=== PATIENT | female | born 1985 | race Caucasian/White ===

== ENCOUNTER 2018-03-23 19:31 | Emergency (ER) | payer OTHER ==
[2018-03-23] MEDS ORDERED: NA CHLORIDE 0.9% 1,000 ML ONE ×2 (20:19→22:00)
[2018-03-23 20:40] LABS: Urine Blood NEGATIVE (NEG); Urine Glucose NEGATIVE (NEG); Urine Protein NEGATIVE (NEG)
[2018-03-23 20:49] LABS: Absolute Lymphocytes (CBC) 0.2 K/uL (0.7-4.9); Absolute Monocytes 0.4 K/uL (0.1-1.3); Basophils % 0.2 % (0-1.3); Eosinophils % 0.9 % (0-4.4); Hematocrit 40.8 % (36.0-45.0); Lymphocytes % 2.3 % (15.3-44.8); MCH 27.8 pg (27.0-35.0); MCV 83.1 fL (80-100); Monocytes % 3.7 % (3.3-12.3); RBC Red Blood Cell Count 4.91 M/uL (3.86-4.86)
[2018-03-23 20:53] LABS: Potassium 3.6 mEq/L (3.6-5.0)
[2018-03-23 20:59] LABS: Albumin 4.5 g/dL (3.2-5.5); Bilirubin Direct 0.1 mg/dL (0-0.2); Bilirubin Total 1.1 mg/dL (0.3-1.2); Protein, Total 7.3 g/dL (6.0-8.3)
[2018-03-23 21:12] LABS: Urine RBC <5 /HPF (NONE SEEN)
[2018-03-23 21:13] LABS: Urine Bacteria <20 /HPF (<20); Urine Culture Reflex Order NOT NEEDED
[2018-03-23 21:14] LABS: Blood Morphology Comment NOT SEEN (NOT SEEN); Platelet Estimate ADEQ; Urine White Blood Cell Casts OK
--- NOTE | 2018-03-23 21:51 | RAD REPORT ---
EXAM DESCRIPTION: CT - Abdomen Pelvis W Contrast - 03/23/2018 9:36 pm CLINICAL HISTORY: Abdominal pain with nausea and vomiting COMPARISON: none. TECHNIQUE: Computed axial tomography of the abdomen pelvis was obtained. 100 cc Isovue-300 was admin istered intravenously. Oral contrast was not requested which limits evaluation of bowel. All CT scans are performed using dose optimization technique as appropriate and may include automated exposure control or mA/KV adjustment according to patient size. FINDINGS: The liver, spleen, pancreas, and adrenals appear unremarkable. A a\ 23 millimeter structure is present within the right renal fossa which is partially cystic. This probably represents right renal tissue which is congenitally markedly atrophic. The left kidney appears unremarkable. There is no evidence of diverticulitis. An adnexal mass is not seen. The appendix is not clearly visualized. A small umbilical hernia is present IMPRESSION: Congenitally markedly atrophic right kidney Small umbilical hernia.
--- NOTE | 2018-03-23 23:31 | EDPHYS ---
Physician Documentation [facility] Name: Flor Grider Age: 32 yrs Sex: Female : 1985 Arrival Date: 03/23/2018 Time: 19:35 Bed 27 Private MD: Elian Macedo HPI: 03/23 19:59 This 32 yrs old Female presents to ER via Ambulatory with complaints of jmm Fever, Vomiting/Diarrhea. 19:59 The patient presents with abdominal pain in the lower abdomen. Onset: The jmm symptoms/episode began/occurred gradually, today. The symptoms do not radiate. Associated signs and symptoms: Pertinent positives: diarrhea, vomiting. The symptoms are described as achy. Modifying factors: The symptoms are alleviated by nothing, the symptoms are aggravated by nothing. Patient complains of lower abdominal pain with vomiting and diarrhea beginning today. Denies Recent abx, denies recent travel or infectious exposure. . 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 - Social history:: Smoking status: Patient/guardian denies using tobacco, Patient/guardian denies using alcohol, street drugs. - Ebola Screening: : Patient negative for fever greater than or equal to 101.5 degrees Fahrenheit, and additional compatible Ebola Virus Disease symptoms Patient denies exposure to infectious person Patient denies travel to an Ebola-affected area in the 21 days before illness onset. ROS: 19:59 Cardiovascular: Negative for chest pain, palpitations, and edema, Respiratory: Negative jmm for shortness of breath, cough, wheezing, and pleuritic chest pain. 19:59 : Negative for injury, bleeding, discharge, and swelling, MS/Extremity: Negative for injury and deformity, Skin: Negative for injury, rash, and discoloration, Neuro: Negative for headache, weakness, numbness, tingling, and seizure, Psych: Negative for depression, anxiety, suicide ideation, homicidal ideation, and hallucinations. 19:59 Constitutional: Positive for chills, fever. 19:59 Abdomen/GI: Positive for abdominal pain, nausea and vomiting, diarrhea. 19:59 Back: Positive for pain at rest. 19:59 All other systems are negative. Exam: 19:59 Head/Face: atraumatic. Chest/axilla: Normal chest wall appearance and motion. jmm Nontender with no deformity. No lesions are appreciated. Cardiovascular: Regular rate and rhythm. No gallops, murmurs, or rubs. Full/Equal distal pulses. Respiratory: Lungs have equal breath sounds bilaterally, clear to auscultation. No rales, rhonchi or wheezes noted. No increased work of breathing, no retractions or nasal flaring. 19:59 Constitutional: The patient appears in no acute distress, alert, awake. 19:59 Abdomen/GI: Inspection: abdomen appears normal, Bowel sounds: normal, Palpation: soft, moderate abdominal tenderness, in the right lower quadrant. 19:59 Back: ROM is normal. 19:59 Musculoskeletal/extremity: Extremities: ROM: intact in all extremities. 19:59 Skin: Appearance: Color: normal in color. 19:59 Neuro: Orientation: is normal, Mentation: is normal, Memory: is normal. 19:59 Psych: Behavior/mood is pleasant, cooperative. Vital Signs: 19:46 BP 97 / 59; Pulse 113; Resp 20; Temp 101.1(O); Pulse Ox 96% on R/A; Weight 54.43 kg ao (R); Height 5 ft. 1 in. (154.94 cm) (R); Pain 5/10; 20:50 BP 138 / 58; Pulse 60; Resp 17; Pulse Ox 100% on R/A; Pain 5/10; ao 21:02 Temp 98.5(O); ao 22:01 BP 107 / 50; Pulse 84; Resp 18; Pulse Ox 100% ; Pain 0/10; ao 23:15 BP 112 / 62; Pulse 76; Resp 16; Pulse Ox 100% on R/A; Pain 0/10; ao 19:46 Body Mass Index 22.67 (54.43 kg, 154.94 cm) ao MDM: 19:57 Patient medically screened. [facility] 23:29 Data reviewed: vital signs, nurses notes, lab test result(s), radiologic studies, CT [facility] scan. Counseling: I had a detailed discussion with the patient and/or guardian regarding: the historical points, exam findings, and any diagnostic results supporting the discharge/admit diagnosis, lab results, radiology results, the need for outpatient follow up, to return to the emergency department if symptoms worsen or persist or if there are any questions or concerns that arise at home. ED course: Early appendicitis return precautions given. 03/23 19:58 Order name: Amylase, Serum; Complete Time: 21:00 [facility] 03/23 19:58 Order name: Basic Metabolic Panel; Complete Time: 21:00 [facility] 03/23 19:58 Order name: CBC with Diff; Complete Time: 21:21 [facility] 03/23 19:58 Order name: Creatinine for Radiology; Complete Time: 21:00 [facility] 03/23 19:58 Order name: Hepatic Function; Complete Time: 21:00 [facility] 03/23 19:58 Order name: Lipase; Complete Time: 21:00 [facility] 03/23 19:58 Order name: Urine Test (obtain specimen); Complete Time: 20:39 [facility] 03/23 19:58 Order name: Urine Microscopic Only; Complete Time: 21:21 [facility] 03/23 19:58 Order name: CT Abd/Pelvis - W/Contrast; Complete Time: 21:58 [facility] 03/23 20:36 Order name: Urine Dipstick--Ancillary (enter results); Complete Time: 21:00 03/23 20:36 Order name: Urine --Ancillary (enter results); Complete Time: 21:00 03/23 20:52 Order name: CBC Smear Scan; Complete Time: 21:21 [facility] 03/23 19:58 Order name: IV Saline Lock; Complete Time: 20:39 [facility] 03/23 19:58 Order name: Labs collected and sent; Complete Time: 20:39 [facility] 03/23 19:58 Order name: Urine Dipstick-Ancillary (obtain specimen); Complete Time: 20:39 [facility] Administered Medications: 20:38 Drug: NS 0.9% 1000 ml Route: IV; Rate: 1 bolus; Site: right antecubital; ao 03/24 00:17 Follow up: IV Status: Completed infusion; IV Intake: 1000ml 03/23 22:45 Drug: NS 0.9% 1000 ml Route: IV; Rate: 1 bolus; Site: right antecubital; ao 23:20 Follow up: IV Status: Completed infusion; IV Intake: 1000ml ao Disposition: 03/23/18 23:30 Discharged to Home. Impression: Vomiting, Diarrhea, unspecified. - Condition is Stable. - Discharge Instructions: Diarrhea, Nausea and Vomiting, Food Choices to Help Relieve Diarrhea, Adult. - Prescriptions for Reglan 10 mg Oral Tablet - take 1 tablet by ORAL route every 6 hours take 30 minutes before meals and at bedtime; 20 tablet. - Medication Reconciliation Form, Thank You Letter, Antibiotic Education, Prescription Opioid Use form. - Follow up: Private Physician; When: 2 - 3 days; Reason: Continuance of care. Addendum: 03/25/2018 10:03 Co-signature as Attending Physician, Elian Stearns MD I agree with the assessment and c roca plan of care. Signatures: Dispatcher [employer] EDElian Gaming MD MD cha Mickail, Joel, PA PA [facility] Reece Bermeo, RN RN ao Corrections: (The following items were deleted from the chart) 03/23 23:45 23:30 03/23/2018 23:30 Discharged to Home. Impression: Vomiting; Diarrhea, unspecified. ao Condition is Stable. Forms are Medication Reconciliation Form, Thank You Letter, Antibiotic Education, Prescription Opioid Use. Follow up: Private Physician; When: 2 - 3 days; Reason: Continuance of care. [facility] 03/24 00:18 03/23 23:45 03/23/2018 23:30 Discharged to Home. Impression: Vomiting; Diarrhea, ao unspecified. Condition is Stable. Discharge Instructions: Diarrhea, Nausea and Vomiting, Food Choices to Help Relieve Diarrhea, Adult. Prescriptions for Reglan 10 mg Oral Tablet - take 1 tablet by ORAL route every 6 hours take 30 minutes before meals and at bedtime; 20 tablet. and Forms are Medication Reconciliation Form, Thank You Letter, Antibiotic Education, Prescription Opioid Use. Follow up: Private Physician; When: 2 - 3 days; Reason: Continuance of care. ao
--- NOTE | 2018-03-23 23:31 | ER ---
Nurse's Notes [facility] Name: Flor Grider Age: 32 yrs Sex: Female : 1985 Arrival Date: 03/23/2018 Time: 19:35 Bed 27 Private MD: Diagnosis: Vomiting;Diarrhea, unspecified Presentation: 03/23 19:44 Presenting complaint: Patient states: "I woke up this morning with abdominal pain, ao nausea and vomiting." Patient describes pain is shooting in the middle of the abdomen. Patient also reports diarrhea that started 2 hours ago. Transition of care: patient was not received from another setting of care. Onset of symptoms was March 23, 2018 at 06:00. Risk Assessment: Do you want to hurt yourself or someone else? Patient reports no desire to harm self or others. Initial Sepsis Screen: Does the patient meet any 2 criteria? No. Patient's initial sepsis screen is negative. Does the patient have a suspected source of infection? No. Patient's initial sepsis screen is negative. Care prior to arrival: None. 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 - Social history:: Smoking status: Patient/guardian denies using tobacco, Patient/guardian denies using alcohol, street drugs. - Ebola Screening: : Patient negative for fever greater than or equal to 101.5 degrees Fahrenheit, and additional compatible Ebola Virus Disease symptoms Patient denies exposure to infectious person Patient denies travel to an Ebola-affected area in the 21 days before illness onset. Screenin:51 Abuse screen: Denies threats or abuse. Denies injuries from another. Nutritional ao screening: No deficits noted. Tuberculosis screening: No symptoms or risk factors identified. Fall Risk None identified. Assessment: 19:49 General: Appears in no apparent distress. comfortable, Behavior is calm, cooperative, ao appropriate for age. Pain: Complains of pain in abdomen Pain currently is 5 out of 10 on a pain scale. Quality of pain is described as shooting. Neuro: Level of Consciousness is awake, alert, obeys commands, Oriented to person, place, time, situation, Appropriate for age Moves all extremities. Speech is normal, Facial symmetry appears normal, Pupils are PERRLA. Cardiovascular: Capillary refill < 3 seconds Patient's skin is warm and dry. Respiratory: Airway is patent Respiratory effort is even, unlabored, Respiratory pattern is regular, symmetrical. GI: Abdomen is non-distended, Reports upper abdominal pain, nausea, Pain is 5 out of 10 on a pain scale. vomiting, since this morning. : No signs and/or symptoms were reported regarding the genitourinary system. EENT: No signs and/or symptoms were reported regarding the EENT system. Derm: Skin is intact, Skin is pink, warm \\T\\ dry. normal, Skin temperature is warm. Musculoskeletal: Circulation, motion, and sensation intact. Range of motion: intact in all extremities. 20:50 Reassessment: Patient appears in no apparent distress at this time. Patient and/or ao family updated on plan of care and expected duration. Pain level reassessed. Patient is alert, oriented x 3, equal unlabored respirations, skin warm/dry/pink. 22:01 Reassessment: Patient appears in no apparent distress at this time. Patient and/or ao family updated on plan of care and expected duration. Pain level reassessed. Patient is alert, oriented x 3, equal unlabored respirations, skin warm/dry/pink. 22:10 Reassessment: Received an verbal order from TALYA Au to give NS 1000 ML bolus as ao requested by patient. 23:15 Reassessment: Patient appears in no apparent distress at this time. Patient and/or ao family updated on plan of care and expected duration. Pain level reassessed. Patient is alert, oriented x 3, equal unlabored respirations, skin warm/dry/pink. 23:44 Reassessment: DC instructions given to patient. Patient agree with the POC and to ao follow up with PCP. Patient has no questions at this time. Vital Signs: 19:46 BP 97 / 59; Pulse 113; Resp 20; Temp 101.1(O); Pulse Ox 96% on R/A; Weight 54.43 kg ao (R); Height 5 ft. 1 in. (154.94 cm) (R); Pain 5/10; 20:50 BP 138 / 58; Pulse 60; Resp 17; Pulse Ox 100% on R/A; Pain 5/10; ao 21:02 Temp 98.5(O); ao 22:01 BP 107 / 50; Pulse 84; Resp 18; Pulse Ox 100% ; Pain 0/10; ao 23:15 BP 112 / 62; Pulse 76; Resp 16; Pulse Ox 100% on R/A; Pain 0/10; ao 19:46 Body Mass Index 22.67 (54.43 kg, 154.94 cm) ao ED Course: 19:35 Patient arrived in ED. es 19:39 Roberto Nuñez PA is PHCP. jmm 19:39 Elian Stearns MD is Attending Physician. m 19:43 Reece Bermeo, RN is Primary Nurse. ao 19:46 Triage completed. ao 19:48 Arm band placed on right wrist. Patient placed in an exam room, on a stretcher, on ao pulse oximetry, Patient notified of wait time. 19:51 Patient has correct armband on for positive identification. Pulse ox on. NIBP on. ao 21:30 Inserted saline lock: 20 gauge in right antecubital area, using aseptic technique. ao Blood collected. IV discontinued, intact, bleeding controlled, No redness/swelling at site. Pressure dressing applied. 21:33 CT completed. Patient moved to CT via wheelchair. Patient moved back from CT. cw1 21:36 CT Abd/Pelvis - W/Contrast In Process Unspecified. EDMS 23:43 No provider procedures requiring assistance completed. ao 03/24 00:15 Primary Nurse role handed off by Reece Bermeo, RN ao Administered Medications: 03/23 20:38 Drug: NS 0.9% 1000 ml Route: IV; Rate: 1 bolus; Site: right antecubital; ao 03/24 00:17 Follow up: IV Status: Completed infusion; IV Intake: 1000ml ao 03/23 22:45 Drug: NS 0.9% 1000 ml Route: IV; Rate: 1 bolus; Site: right antecubital; ao 23:20 Follow up: IV Status: Completed infusion; IV Intake: 1000ml ao Intake: 23:20 IV: 1000ml; Total: 1000ml. ao 03/24 00:17 IV: 1000ml; Total: 2000ml. ao Outcome: 03/23 23:30 Discharge ordered by . marguerite 23:44 Discharged to home ambulatory. ao 23:44 Condition: stable 23:44 Discharge instructions given to patient, Instructed on discharge instructions, follow up and referral plans. Demonstrated understanding of instructions, follow-up care, medications, Prescriptions given X 1. 23:45 Patient left the ED. ao 03/24 00:18 Patient left the ED. ao Signatures: Dispatcher [employer] EDRoberto Dhillon PA PA jmm Salyer, Edna es Woodley, Crystal cw1 Reece Bermeo, RN RN ao
== END 2018-03-24 00:18 | disposition home or self-care (01) ==
LOC: ER 19:31
DX: R19.7 Diarrhea, unspecified (principal)
CPT/HCPCS: 36415; 74177; 80048; 80076; 81003; 81015; 81025; 82150; 83690; 85025; 96360; 96361; 99284; J7030; Q9967